=== PATIENT | female | born 1940 | race Caucasian/White ===

== ENCOUNTER 2017-09-18 15:17 | Emergency (ER) | payer MEDICARE ==
[~2017-09-18] VITALS: Ht 152.4 cm; Wt 87.5 kg
[~2017-09-18 15:17] MED LIST: AMLODIPINE BESYL5 MG PO; PRAVASTATIN SOD20 MG PO; PRILOSEC2.5 MG PO; VITAMIN C100 MG PO; VITAMIN D400 UNI2 PO
[2017-09-18] MEDS ORDERED: HYDROCODONE/APAP 5MG-325MG TAB PO ONE (15:45)
[2017-09-18] MEDS ORDERED: IBUPROFEN 600 MG TAB PO STA (15:59)
[2017-09-18 16:33] VITALS: BP 140/82
== END 2017-09-18 16:35 | disposition home or self-care (01) ==
LOC: FSED 15:17
DX: M25.531 Pain in right wrist (principal); G56.01 Carpal tunnel syndrome, right upper limb; S63.511A Sprain of carpal joint of right wrist, initial encounter; S63.521A Sprain of radiocarpal joint of right wrist, initial encounter
CPT/HCPCS: 99283

== ENCOUNTER 2018-02-24 21:03 | Emergency (ER) | payer MEDICARE ==
[~2018-02-24] VITALS: Ht 152.4 cm; Wt 90.7 kg
[2018-02-24] MEDS ORDERED: TETANUS/DIPHTHERIA TOX ADULT 0.5 ML SYR IM STA (21:52)
[2018-02-24] MEDS ORDERED: ACETAMINOPHEN 325 MG TAB PO ONE (22:00)
[2018-02-24] MEDS ORDERED: MUPIROCIN 2% OINT 22 GM TUBE TOP ONE (22:00)
--- NOTE | 2018-02-24 22:05 | Diagnostic Imaging Report ---
EXAMINATION: Head CT without contrast. HISTORY:Status post fall. COMPARISON:CT brain from 01/25/2015. TECHNIQUE: Multidetector axial images were obtained from the foramen magnum to the vertex without contrast. The images were reconstructed using brain and bone algorithms. Thin section brain images were reformatted into coronal and sagittal planes. Dose modulation, iterative reconstruction, and/or weight based adjustment of the mA/kV was utilized to reduce the radiation dose to as low as reasonably achievable. Intravenous contrast: None IMAGE QUALITY: Acceptable. FINDINGS: Skull/scalp: Mild right parietal scalp soft tissue edema/hematoma. No acute depressed or displaced calvarial fracture. Parenchyma: Nonspecific bilateral frontoparietal patchy white matter hypodensity are likely related to small vessel ischemic changes. No acute hemorrhage, mass or acute major vascular territorial infarct. Arteries: No density suggestive of thrombosis. Dural sinuses: No abnormal density suggestive of thrombosis. Ventricles: No hydrocephalus or displacement. Extra-axial spaces: No abnormal density. Brain volume: Mild generalized cerebral volume loss. Craniocervical junction: No mass, Chiari malformation, or basilar invagination. Sella: Partial empty sella. Paranasal/mastoid sinuses: Mild mucosal thickening in right sphenoid sinus. IMPRESSION: 1. Mild right parietal scalp soft tissue edema/hematoma. No acute calvarial fracture. 2. No acute posttraumatic intracranial abnormality. Chronic findings: 1. Mild generalized cerebral volume loss. 2. Mild supratentorial white matter microvascular ischemic changes. Signed by: Dr. Linda Briceño M.D. on 02/24/2018 10:01 PM
[2018-02-24 22:27] VITALS: BP 149/67
== END 2018-02-24 22:41 | disposition home or self-care (01) ==
LOC: FSED 21:03
DX: S06.0X0A Concussion without loss of consciousness, initial encounter (principal); S00.03XA Contusion of scalp, initial encounter; S00.01XA Abrasion of scalp, initial encounter; W18.39XA Other fall on same level, initial encounter; Y92.511 Restaurant or cafe as the place of occurrence of the external cause
CPT/HCPCS: 70450; 90714; 99283

== ENCOUNTER 2019-03-06 19:42 | Observation (INO) | payer MEDICARE ==
[~2019-03-06] VITALS: Ht 152.4 cm; Wt 88.5 kg
[2019-03-06] VITALS: BP 130/61
[2019-03-06] MEDS ORDERED: ASPIRIN 81 MG CHEW TAB PO ONE ×2 (19:55→20:45)
[2019-03-06] MEDS ORDERED: NITROGLYCERIN 2% OINT 1 GM PKT TOP STA (20:05)
[2019-03-06] MEDS ORDERED: ASPIRIN 325 MG TAB ONE (20:10)
[2019-03-06] MEDS ORDERED: NITROGLYCERIN 2% OINT 1 GM PKT ONE (20:10)
--- NOTE | 2019-03-06 20:41 | Diagnostic Imaging Report ---
EXAM: CXR 2 VIEW - HOPD DATE: 03/06/2019 12:00 AM INDICATION: Chest pain ^[id number] ^2021 COMPARISON: None FINDINGS: Lines and tubes: None Cardiac silhouette is at upper normal size. No focal pulmonary opacity, pleural effusion or pneumothorax. Upper abdomen unremarkable. No acute bony abnormality. IMPRESSION: Borderline heart size. No evidence for acute disease. Signed by: Dr. Alex Huggins M.D. on 03/06/2019 8:38 PM
[2019-03-06] MEDS: FAMOTIDINE 20 MG TAB PO SCH (20:43)
[2019-03-06] MEDS ORDERED: PROMETHAZINE 12.5MG/ NACL 0.9% 50 ML IV PRN (20:45)
[2019-03-06] MEDS ORDERED: PROMETHAZINE HCL (IM) 25 MG/ML VIAL IV PRN (20:45)
[2019-03-06] MEDS ORDERED: MORPHINE SULFATE 2 MG/ML SYR 1ML IV PRN (20:45)
[2019-03-06] MEDS ORDERED: FAMOTIDINE 20 MG TAB ONE (20:46)
--- NOTE | 2019-03-06 21:30 | NUR ---
Patient was brought from freestanding Er in a stretcher with c/o chest pain.aaox4.ambulates with cane.no resp.distress.iv to left ac #20 g patent.tele #4 is placed.sr.oriented to the unit.bed locked and in lowest position.phone and call light within reach.instructed to call for assistance as needed.chest pain voiced 03/28.keep monitor the pt.
[2019-03-06 22:00] VITALS: BP 146/65
[2019-03-07] MEDS ORDERED: ARICEPT5 MG PO (01:16)
[2019-03-07] MEDS ORDERED: GABAPENTIN100 MG PO (01:16)
[2019-03-07] MEDS ORDERED: CHLORTHALIDONE25 MG PO (01:16)
[2019-03-07] MEDS ORDERED: ASPIRIN81 MG PO (01:16)
[2019-03-07] MEDS ORDERED: LEVOTHYROXINE50 MCG PO (01:16)
[2019-03-07] MEDS ORDERED: LISINOPRIL10 MG PO (01:16)
[2019-03-07] MEDS ORDERED: MELOXICAM7.5 MG PO (01:16)
[2019-03-07] MEDS: NITROGLYCERIN 2% OINT 1 GM PKT TOP SCH ×3 (01:20→12:00)
[2019-03-07 04:00] VITALS: BP 108/56
--- NOTE | 2019-03-07 05:00 | NUR ---
NO CHEST PAIN VOICED.RESTING WELL .
[2019-03-07 06:52] LABS: CREATINE KINASE MB 0.8 ng/mL (0-5.0)
--- NOTE | 2019-03-07 07:00 | NUR ---
Bed side shift report given to the oncoming Rn.stable condition.
[2019-03-07 07:10] LABS: CHOL/HDL RATIO 3.5 (3.0-3.6)
--- NOTE | 2019-03-07 07:11 | NUR ---
walking rounds completed and shift change report received from cnc machinist 2nd shift RN. pt resting, in stable condition.
[2019-03-07 07:34] VITALS: BP 121/57
[2019-03-07 08:08] VITALS: BP 121/57
[2019-03-07] MEDS ORDERED: ASPIRIN 81 MG ENTERIC COATED PO SCH (09:00)
[2019-03-07] MEDS: FAMOTIDINE 20 MG TAB PO SCH (10:02)
[2019-03-07 12:11] VITALS: BP 146/65
--- OUTSIDE RECORDS SUMMARY | 2019-03-07 14:08 | XMS REPORT ---
Author Author [facility] Address Unknown Phone Unavailable Care Team Providers Care Admissions Rn Name Role Phone Nacho FIERRO Unavailable Unavailable Bob PERALES Unavailable Unavailable Problems This patient has no known problems. Allergies, Adverse Reactions, Alerts This patient has no known allergies or adverse reactions. Medications This patient has no known medications. Results Test Description Test Time Test Comments Text Results Atomic Results Result Comments CXR 2 VIEW - HOPD 2019-03-06 20:37:00 [place] [address] Patient Name: BENNY GALICIA MR #: [id number] : 1940 Age/Sex: 78/F Req #: [id number] Adm Physician: Ordered by: JOSY LOFTON MD Report #: [id number] Location: [facility] Room/Bed: Procedure: [id number] HOPD/CXR 2 VIEW - HOPD Exam Date: 03/06/19 Exam Time: 2021 REPORT STATUS: Signed EXAM: CXR 2 VIEW - HOPD DATE: 03/06/2019 12:00 AM INDICATION: Chest pain [id number] COMPARISON: None FINDINGS: Lines and tubes: None Cardiac silhouette is at upper normal size. No focal pulmonary opacity, pleural effusion or pneumothorax. Upper abdomen unremarkable. No acute bony abnormality. IMPRESSION: Borderline heart size. No evidence for acute disease. Signed by: Dr. Josy Regan M.D. on 03/06/2019 8:38 PM Dictated By: JOSY REGAN MD 37 Transcribed By: HEATHER on 03/06/192037 COPY TO: JOSY LOFTON MD CT BRAIN [facility] 2018-02-24 21:57:00 [place] [address] Patient Name: BENNY GALICIA MR #: [id number] : 1940 Age/Sex: 77/F Req #: [id number] Adm Physician: Ordered by: SERAFIN PERALES MD Report #: [id number] Location: [facility] Room/Bed: Procedure: [id number] HOPD/CT BRAIN [facility] Exam Date: 02/24/18 Exam Time: 2144 REPORT STATUS: Signed EXAMINATION: Head CT without contrast. HISTORY:St atus post fall. COMPARISON:CT brain from 01/25/2015. TECHNIQUE: Multidetector axial images were obtained from the foramen magnum to the vertex without contrast. The images were reconstructed using brain and bone algorithms. Thin section brain images were reformatted into coronal and sagittal planes. Dose modulation, iterative reconstruction, and/or weight based adjustment of the mA/kV was utilized to reduce the radiation dose to as low as reasonably achievable. Intravenous contrast: None IMAGE QUALITY: Acceptable. FINDINGS: Skull/scalp: Mild right parietal scalp soft tissue edema/hematoma. No acute depressed or displaced calvarial fracture. Parenchyma: Nonspecific bilateral frontoparietal patchy white matter hypodensity are likely related to small vessel ischemic changes. No acute hemorrhage, mass or acute major vascular territorial infarct. Arteries: No density suggestive of thrombosis. Dural sinuses: No abnormal density suggestive of thrombosis. Ventricles: No hydrocephalus or displacement. Extra-axial spaces: No abnormal density. Brain volume: Mild generalized cerebral volume loss. Craniocervical junction: No mass, Chiari malformation, or basilar invagination. Sella: Partial empty sella. Paranasal/mastoid sinuses: Mild mucosal thickening in right sphenoid sinus. IMPRESSION: 1. Mild right parietal scalp soft tissue edema/hematoma. No acute calvarial fracture. 2. No acute posttraumatic intracranial abnormality. Chronic findings: 1. Mild generalized cerebral volume loss. 2. Mild supratentorial white matter microvascular ischemic changes. Signed by: Dr. Linda Briceño M.D. on 02/24/2018 10:01 PM Dictated By: LINDA BRICEÑO MD 00 Transcribed By: HEATHER on 02/24/182200 COPY TO: SERAFIN PERALES MD
[2019-03-07 14:43] LABS: ANION GAP 15.6 mmol/L (8-16); CALCIUM 9.3 mg/dL (8.4-10.2); CREATININE, SERUM 1.34 mg/dL (0.57-1.11); POTASSIUM 3.6 mmol/L (3.5-5.1)
[2019-03-07] MEDS ORDERED: MELOXICAM 7.5 MG TAB PO SCH (15:00)
--- NOTE | 2019-03-07 15:30 | NUR ---
REEMA explained to patient, patient signed, copy to pt , copy to chart
[2019-03-07 15:31] VITALS: BP 145/71
[2019-03-07 15:37] LABS: CREATINE KINASE MB 0.9 ng/mL (0-5.0)
--- NOTE | 2019-03-07 20:51 | History and Physical ---
PCP: Dr. Mitchell at [facility]. CHIEF COMPLAINT: Chest pain. HISTORY OF PRESENT ILLNESS: This is a 78-year-old female with past medical history of hypertension, high cholesterol, GERD, hypothyroidism, and pancreatic cancer, who presented to the Urgent Care with complaints of chest pain and epigastric pain. She was recently started on gabapentin. She reports having nausea, vomiting, and progressive epigastric pain and chest pain associated with nausea and vomiting. She reports starting medication on Sunday and has been vomiting ever since. She denies any shortness of breath, radiation of pain to the left arm or jaw area. No dizziness or passing out. She denies any hematemesis, dysuria, diarrhea, melena. Yesterday, she reports the pain was progressively getting worse, so presented to the freestanding ER for further evaluation. PAST MEDICAL HISTORY: 1. Hypertension. 2. High cholesterol. 3. Rheumatoid arthritis. 4. Gastroesophageal reflux disease. 5. Hypothyroidism. 6. Pancreatic cancer. PAST SURGICAL HISTORY: She had appendectomy, stem cell, carpal tunnel on right wrist. FAMILY MEDICAL HISTORY: Father had heart disease. Also brothers with heart disease and brother had a colon cancer. SOCIAL HISTORY: She denies any tobacco, alcohol, or drug use. ALLERGIES: SHE IS ALLERGIC TO IODINE AND ZOFRAN. REVIEW OF SYSTEMS: GENERAL: Fatigue. HEENT: No head trauma. LUNGS: No shortness of breath or cough. CARDIOVASCULAR: Reports chest pain, no palpitation or passing out. GI: Nausea, vomiting, and epigastric pain. NEUROLOGIC: Alert and oriented. MUSCULOSKELETAL: Moves all extremities. No edema. SKIN: Dry. PHYSICAL EXAMINATION: VITAL SIGNS: Temperature 96.2, pulse 84, respirations 18, blood pressure 146/65, pulse ox 96%. GENERAL: No acute distress. HEENT: Normocephalic, atraumatic. NECK: Supple. LUNGS: Clear to auscultation. CARDIOVASCULAR: Regular rate and rhythm. GI: Mild tenderness in the epigastric area. Obese and soft. NEUROLOGIC: Alert, awake, and oriented x3. MUSCULOSKELETAL: Moves all extremities. No edema. SKIN: Dry and intact. PSYCHIATRY: Calm. LABORATORY DATA: Cardiac enzymes negative. WBCs 7.2, hemoglobin 11.1, hematocrit 34.6, platelets 227. Sodium 138, potassium 3.5, creatinine 1.5, ALT 25, AST 23, troponin less than 0.05. CKD 1.1. Chest x-ray unremarkable. Borderline heart size. IMPRESSION: 1. Chest pain. Acute coronary syndrome ruled out. Chest pain likely due to nausea and vomiting, GI origin. She was given Pepcid, aspirin and nitroglycerin at the ER. She reports the pain is much improved now. Advised to stop taking gabapentin. 2. Hypertension. Resume home medication. 3. Acute kidney injury, creatinine 1.5, likely due to nausea, vomiting, and now on baseline. We will repeat BMP. 4. Hyperlipidemia. Continue statin. 5. Gastroesophageal reflux disease. Continue Pepcid. 6. Hypothyroidism. Continue levothyroxine 50 mcg. 7. Rheumatoid arthritis. Resume Mobic. 8. Pancreatic cancer history, now on remission. 9. Deep vein thrombosis prophylaxis. SCDs. PLAN: The patient is with negative troponins, chest pain is improved. No EKG changes, the patient is advised to stop taking gabapentin and follow up with her PCP. Likely, the chest pain is due to epigastric pain radiating to the chest. We will avoid irritant and encourage to use Pepcid for acid reflux. Same-day discharge. Dictated by CHAITANYA Oquendo Blake Shoemaker MD MY/MODL /[id number] Seen and examined on 03/07/19. Agree with the findings and plan as documented by CHAITANYA Child. MTDD
[2019-03-07] MEDS ORDERED: PRAVASTATIN 20 MG TAB PO SCH (21:00)
[2019-03-07] MEDS ORDERED: DONEPEZIL HCL 5 MG TAB PO SCH (21:00)
[2019-03-08] MEDS ORDERED: LEVOTHYROXINE SODIUM 50 MCG TAB PO SCH (06:00)
[2019-03-08] MEDS ORDERED: CHLORTHALIDONE 25 MG TAB PO SCH (09:00)
[2019-03-08] MEDS ORDERED: LISINOPRIL 10 MG TAB PO SCH (09:00)
== END 2019-03-07 15:57 | disposition home or self-care (01) ==
LOC: FSED 19:42 → ERHOLD 20:41 → MED/SURG 21:53
PROVIDERS: ADMIT Internal Medicine; ATTEND Internal Medicine
DX: R07.9 Chest pain, unspecified (principal); I10 Essential (primary) hypertension; N17.9 Acute kidney failure, unspecified; K21.9 Gastro-esophageal reflux disease without esophagitis; M06.9 Rheumatoid arthritis, unspecified; Z85.07 Personal history of malignant neoplasm of pancreas; E78.5 Hyperlipidemia, unspecified
CPT/HCPCS: 36415; 71046; 80048; 80053; 80061; 82550; 82553 ×2; 84484 ×2; 85025; 93005; 99284; G0378 ×2

== ENCOUNTER 2020-03-26 14:48 | Observation (INO) | payer MEDICARE ==
[~2020-03-26] VITALS: Ht 152.4 cm; Wt 88.5 kg
[~2020-03-26 14:48] MED LIST changes: +ARICEPT5 MG PO; +ASPIRIN81 MG PO; +CHLORTHALIDONE25 MG PO; +GABAPENTIN100 MG PO; +LEVOTHYROXINE50 MCG PO; +LISINOPRIL10 MG PO; +MELOXICAM7.5 MG PO
[2020-03-26] MEDS ORDERED: ATORVASTATIN CA40 MG PO (16:03)
[2020-03-26] MEDS ORDERED: FUROSEMIDE40 MG PO (16:03)
[2020-03-26] MEDS ORDERED: PROVENTIL HFA6.7 GM INH (16:03)
[2020-03-26] MEDS ORDERED: CARVEDILOL6.25 MG (16:03)
[2020-03-26] MEDS ORDERED: BENZONATATE100 MG PO (16:03)
[2020-03-26] MEDS ORDERED: MECLIZINE HCL12.5 MG PO (16:03)
[2020-03-26] MEDS ORDERED: DIAZEPAM INJ 5 MG/ML 2 ML IV ONE (17:30)
[2020-03-26] MEDS ORDERED: SODIUM CHLORIDE FLUSH 10 ML SYR INJ PRN (19:15)
[2020-03-26] MEDS ORDERED: ONDANSETRON HCL INJ 2MG/ML 2ML 2 MG/ML VIAL IV PRN (19:15)
[2020-03-26 20:40] VITALS: BP 153/69
[2020-03-26] MEDS ORDERED: HYDRALAZINE HCL 20 MG/ML VIAL IV PRN (20:45)
[2020-03-27] VITALS (8 sets, daily range): BP systolic 115–155; BP diastolic 53–78
[2020-03-27] MEDS ORDERED: ACETAMINOPHEN 325 MG TAB PO PRN (09:45)
[2020-03-27] MEDS ORDERED: ONDANSETRON HCL INJ 2MG/ML 2ML 2 MG/ML VIAL IV PRN (09:45)
[2020-03-27] MEDS ORDERED: ALBUTEROL SULFATE HFA 8GM INHALATION AEROSOL INH PRN (09:45)
[2020-03-27 11:37] LABS: BASOPHILS % 0.9 % (0.0-1.0); EOSINOPHILS # (AUTO) 0.1 (0.0-0.4); EOSINOPHILS % 2.8 % (0.0-6.0); HEMATOCRIT 29.1 % (34.2-44.1); HEMOGLOBIN 9.2 g/dL (12.0-16.0); LYMPHOCYTES # (AUTO) 1.9 (1.0-3.2); LYMPHOCYTES % 45.1 % (18.0-39.1); MEAN CORPUSCULAR HEMOGLOBIN 32.7 pg (28-32); MEAN CORPUSCULAR HGB CONC 31.6 g/dL (31-35); MEAN CORPUSCULAR VOLUME 103.6 fL (81-99); MONOCYTES # (AUTO) 0.3 (0.2-0.8); NEUTROPHILS # (AUTO) 1.9 (2.1-6.9); PLATELET COUNT 170 x10e3/uL (140-360); RED BLOOD COUNT 2.81 x10e6/uL (3.6-5.1); RED CELL DISTRIBUTION WIDTH 14.4 % (11.7-14.4)
[2020-03-27 11:58] LABS: ANION GAP 10.8 mmol/L (8-16); CALCIUM 8.3 mg/dL (8.4-10.2); CREATININE, SERUM 1.09 mg/dL (0.57-1.11); POTASSIUM 3.8 mmol/L (3.5-5.1)
[2020-03-27] MEDS: MECLIZINE HCL 12.5 MG TAB PO SCH ×2 (14:13→22:28)
[2020-03-27] MEDS ORDERED: SODIUM CHLORIDE 0.9% 250ML 250 ML IV NR (16:00)
[2020-03-27] MEDS ORDERED: CARVEDILOL 12.5 MG TAB PO SCH (17:00)
[2020-03-27] MEDS: CARVEDILOL 12.5 MG TAB PO SCH (17:31)
[2020-03-27] MEDS: DONEPEZIL HCL 5 MG TAB PO SCH (20:39)
[2020-03-28] VITALS (7 sets, daily range): BP systolic 112–143; BP diastolic 50–64
[2020-03-28] MEDS: LEVOTHYROXINE SODIUM 50 MCG TAB PO SCH (05:18)
[2020-03-28] MEDS: MECLIZINE HCL 12.5 MG TAB PO SCH ×3 (05:59→22:09)
[2020-03-28] MEDS: ASPIRIN 81 MG CHEW TAB PO SCH (09:10)
[2020-03-28] MEDS: CARVEDILOL 12.5 MG TAB PO SCH ×2 (09:11→17:03)
[2020-03-28] MEDS: DONEPEZIL HCL 5 MG TAB PO SCH (21:25)
[2020-03-29] VITALS: BP 126/56
[2020-03-29 04:00] VITALS: BP 147/63
[2020-03-29] MEDS: LEVOTHYROXINE SODIUM 50 MCG TAB PO SCH (05:30)
[2020-03-29 05:39] LABS: BASOPHILS % 0.9 % (0.0-1.0); EOSINOPHILS # (AUTO) 0.1 (0.0-0.4); HEMATOCRIT 28.2 % (34.2-44.1); HEMOGLOBIN 9.2 g/dL (12.0-16.0); LYMPHOCYTES # (AUTO) 2.4 (1.0-3.2); LYMPHOCYTES % 51.3 % (18.0-39.1); MEAN CORPUSCULAR HEMOGLOBIN 33.1 pg (28-32); MEAN CORPUSCULAR HGB CONC 32.6 g/dL (31-35); MEAN CORPUSCULAR VOLUME 101.4 fL (81-99); MONOCYTES # (AUTO) 0.3 (0.2-0.8); MONOCYTES % 6.6 % (4.4-11.3); NEUTROPHILS # (AUTO) 1.8 (2.1-6.9); PLATELET COUNT 165 x10e3/uL (140-360); RED BLOOD COUNT 2.78 x10e6/uL (3.6-5.1); RED CELL DISTRIBUTION WIDTH 14.4 % (11.7-14.4)
[2020-03-29] MEDS: MECLIZINE HCL 12.5 MG TAB PO SCH ×2 (06:00→14:00)
[2020-03-29 06:07] LABS: ALBUMIN 2.9 g/dL (3.5-5.0); ANION GAP 12.8 mmol/L (8-16); CALCIUM 8.2 mg/dL (8.4-10.2); CHOL/HDL RATIO 4.5 (3.0-3.6); CREATININE, SERUM 1.09 mg/dL (0.57-1.11); POTASSIUM 3.8 mmol/L (3.5-5.1)
[2020-03-29 07:53] VITALS: BP 144/63
[2020-03-29 08:15] VITALS: BP 144/63
[2020-03-29] MEDS: ASPIRIN 81 MG CHEW TAB PO SCH (10:28)
[2020-03-29] MEDS: CARVEDILOL 12.5 MG TAB PO SCH (10:29)
[2020-03-29 12:00] VITALS: BP 145/62
[2020-03-29] MEDS ORDERED: COREG12.5 MG PO (14:21)
[2020-03-29 15:50] VITALS: BP 153/79
== END 2020-03-29 16:11 | disposition home health service (06) ==
LOC: FSED 14:52 → ERHOLD 19:20 → MED/SURG 20:37
PROVIDERS: ADMIT Internal Medicine; ATTEND Internal Medicine
DX: R42 Dizziness and giddiness (principal); I50.9 Heart failure, unspecified; E03.9 Hypothyroidism, unspecified; J44.9 Chronic obstructive pulmonary disease, unspecified; F03.90 Unspecified dementia, unspecified severity, without behavioral disturbance, psychotic disturbance, mood disturbance, and anxiety; Z85.72 Personal history of non-Hodgkin lymphomas; R27.0 Ataxia, unspecified; E78.5 Hyperlipidemia, unspecified; Z88.8 Allergy status to other drugs, medicaments and biological substances; Z91.041 Radiographic dye allergy status; I11.0 Hypertensive heart disease with heart failure; D64.9 Anemia, unspecified
CPT/HCPCS: 36415 ×2; 70450; 70551; 80048; 80053 ×2; 80061; 81003; 84443; 85025 ×3; 93005; 93880; 96374; 97116 ×2; 97162; 97530 ×2; 99284; G0378 ×4; J3360; J8597 ×3; U0002

== ENCOUNTER 2020-10-23 09:15 | Emergency (ER) | payer MEDICARE ==
[~2020-10-23] VITALS: Ht 152.4 cm; Wt 87.1 kg
[~2020-10-23 09:15] MED LIST changes: +ATORVASTATIN CA40 MG PO; +BENZONATATE100 MG PO; +CARVEDILOL6.25 MG; +COREG12.5 MG PO; +FUROSEMIDE40 MG PO; +MECLIZINE HCL12.5 MG PO; +PROVENTIL HFA6.7 GM INH
[2020-10-23] MEDS ORDERED: ACETAMINOPHEN500 MG PO (09:51)
[2020-10-23] MEDS ORDERED: CLEOCIN HCL300 MG PO (09:51)
== END 2020-10-23 10:15 | disposition home or self-care (01) ==
LOC: FSED 09:19
DX: L03.113 Cellulitis of right upper limb (principal); S61.441A Puncture wound with foreign body of right hand, initial encounter; Z94.84 Stem cells transplant status; I10 Essential (primary) hypertension; G30.9 Alzheimer's disease, unspecified; F02.80 Dementia in other diseases classified elsewhere, unspecified severity, without behavioral disturbance, psychotic disturbance, mood disturbance, and anxiety; I50.9 Heart failure, unspecified; E78.5 Hyperlipidemia, unspecified; J44.9 Chronic obstructive pulmonary disease, unspecified; E03.9 Hypothyroidism, unspecified
CPT/HCPCS: 99283

== ENCOUNTER 2021-04-11 15:52 | Emergency (ER) | payer MEDICARE ==
[~2021-04-11] VITALS: Ht 152.4 cm; Wt 87.1 kg
[~2021-04-11 15:52] MED LIST changes: +ACETAMINOPHEN500 MG PO; +CLEOCIN HCL300 MG PO
[2021-04-11 17:11] LABS: BASOPHILS # (AUTO) 0.1 (0.0-0.1); BASOPHILS % 0.9 % (0.0-1.0); EOSINOPHILS % 0.6 % (0.0-6.0); HEMATOCRIT 35.6 % (34.2-44.1); LYMPHOCYTES % 30.3 % (18.0-39.1); MEAN CORPUSCULAR HEMOGLOBIN 35.3 pg (28-32); MEAN CORPUSCULAR HGB CONC 33.7 g/dL (31-35); MEAN CORPUSCULAR VOLUME 104.7 fL (81-99); MONOCYTES # (AUTO) 0.2 (0.2-0.8); NEUTROPHILS # (AUTO) 4.3 (2.1-6.9); NEUTROPHILS % 64.6 % (38.7-80.0); PLATELET COUNT 220 x10e3/uL (140-360); RED CELL DISTRIBUTION WIDTH 13.2 % (11.7-14.4)
[2021-04-11] MEDS ORDERED: SODIUM CHLORIDE 0.9% 1000ML 1,000 ML IV STA (17:28)
[2021-04-11 17:30] LABS: ALBUMIN 3.7 g/dL (3.5-5.0); ANION GAP 16.2 mmol/L (8-16); CALCIUM 9.3 mg/dL (8.4-10.2); CREATININE, SERUM 1.29 mg/dL (0.57-1.11); POTASSIUM 3.2 mmol/L (3.5-5.1)
[2021-04-11 17:39] LABS: CREATINE KINASE MB 1.8 ng/mL (0-5.0)
[2021-04-11] MEDS ORDERED: GABAPENTIN300 MG PO (18:36)
[2021-04-11] MEDS ORDERED: ONDANSETRON ODT4 MG PO (18:36)
== END 2021-04-11 20:34 | disposition home or self-care (01) ==
LOC: ER 17:37
DX: R53.1 Weakness (principal); G58.8 Other specified mononeuropathies; R11.2 Nausea with vomiting, unspecified; I10 Essential (primary) hypertension; G30.9 Alzheimer's disease, unspecified; F02.80 Dementia in other diseases classified elsewhere, unspecified severity, without behavioral disturbance, psychotic disturbance, mood disturbance, and anxiety; J45.909 Unspecified asthma, uncomplicated; Z85.72 Personal history of non-Hodgkin lymphomas; Z20.822 Contact with and (suspected) exposure to COVID-19
CPT/HCPCS: 36415; 70450; 71045; 80053; 82550; 82553; 84484; 85025; 93005; 99284; U0002

== ENCOUNTER 2021-05-19 09:56 | Emergency (ER) | payer MEDICARE, OTHER ==
[~2021-05-19] VITALS: Ht 152.4 cm; Wt 85.7 kg
[~2021-05-19 09:56] MED LIST changes: +GABAPENTIN300 MG PO; +ONDANSETRON ODT4 MG PO
[2021-05-19] MEDS ORDERED: ACETAMINOPHEN 325 MG TAB ONE (10:44)
[2021-05-19] MEDS ORDERED: ACETAMINOPHEN 325 MG TAB PO ONE (11:00)
== END 2021-05-19 12:29 | disposition home or self-care (01) ==
LOC: FSED 10:22
DX: S80.01XA Contusion of right knee, initial encounter (principal); S61.512A Laceration without foreign body of left wrist, initial encounter; W01.0XXA Fall on same level from slipping, tripping and stumbling without subsequent striking against object, initial encounter; Y93.01 Activity, walking, marching and hiking; Y92.008 Other place in unspecified non-institutional (private) residence as the place of occurrence of the external cause; I10 Essential (primary) hypertension; J45.909 Unspecified asthma, uncomplicated; Z85.72 Personal history of non-Hodgkin lymphomas
CPT/HCPCS: 99283

== ENCOUNTER 2022-04-14 16:57 | Observation (INO) | payer MEDICARE ==
[~2022-04-14] VITALS: Ht 152.4 cm; Wt 78.9 kg
[2022-04-14] MEDS ORDERED: DIPHENHYDRAMINE HCL INJ 50 MG/ML VIAL IV PRN (17:45)
[2022-04-14] MEDS ORDERED: LEVOFLOXACIN 500MG/D5W 100ML 100 ML IV SCH (18:15)
[2022-04-14] MEDS ORDERED: ALBUTEROL SULFATE HFA 8GM INHALATION AEROSOL INH PRN (19:00)
[2022-04-14] MEDS ORDERED: CLONIDINE HCL 0.1 MG TAB PO PRN (19:00)
[2022-04-14] MEDS ORDERED: ONDANSETRON HCL INJ 2MG/ML 2ML 2 MG/ML VIAL IV PRN (19:00)
[2022-04-14] MEDS ORDERED: NON-FORMULARY MEDICATION (Atorvastatin Calcium 40 MG) PO SCH (21:00)
[2022-04-14] MEDS ORDERED: SODIUM CHLORIDE 0.9% 250ML 250 ML ONE (21:28)
[2022-04-14] MEDS: ATORVASTATIN 40 MG TAB PO SCH (21:35)
[2022-04-14] MEDS: DONEPEZIL HCL 5 MG TAB PO SCH (21:36)
[2022-04-14 21:39] VITALS: BP 161/65
[2022-04-14] MEDS: MECLIZINE HCL 12.5 MG TAB PO SCH (22:00)
[2022-04-14] MEDS: METRONIDAZOLE 500MG/NS 100ML 100 ML IV SCH (22:25)
[2022-04-14] MEDS ORDERED: AMLODIPINE BESYL5 MG PO (23:31)
[2022-04-14] MEDS ORDERED: LOSARTAN POTASS25 MG PO (23:31)
[2022-04-14] MEDS ORDERED: LEVOTHYROXINE75 MCG PO (23:31)
[2022-04-15] VITALS (8 sets, daily range): BP systolic 105–138; BP diastolic 45–60
[2022-04-15] MEDS ORDERED: ACETAMINOPHEN 325 MG TAB PO PRN
[2022-04-15] MEDS: ACETAMINOPHEN 325 MG TAB PO PRN ×4 (00:08→21:00)
[2022-04-15 01:33] LABS: HEMATOCRIT 27.8 % (34.2-44.1); HEMOGLOBIN 8.6 g/dL (12.0-16.0)
[2022-04-15] MEDS: METRONIDAZOLE 500MG/NS 100ML 100 ML IV SCH ×2 (02:42→11:00)
[2022-04-15] MEDS: MECLIZINE HCL 12.5 MG TAB PO SCH ×3 (05:32→20:55)
[2022-04-15 06:42] LABS: BASOPHILS % 0.9 % (0.0-1.0); EOSINOPHILS # (AUTO) 0.1 (0.0-0.4); EOSINOPHILS % 1.6 % (0.0-6.0); HEMATOCRIT 28.2 % (34.2-44.1); HEMOGLOBIN 8.7 g/dL (12.0-16.0); LYMPHOCYTES # (AUTO) 1.8 (1.0-3.2); LYMPHOCYTES % 55.6 % (18.0-39.1); MEAN CORPUSCULAR HEMOGLOBIN 36.6 pg (28-32); MEAN CORPUSCULAR HGB CONC 30.9 g/dL (31-35); MEAN CORPUSCULAR VOLUME 118.5 fL (81-99); MONOCYTES # (AUTO) 0.2 (0.2-0.8); MONOCYTES % 5.3 % (4.4-11.3); NEUTROPHILS # (AUTO) 1.2 (2.1-6.9); NEUTROPHILS % 36.3 % (38.7-80.0); PLATELET COUNT 144 x10e3/uL (140-360); RED BLOOD COUNT 2.38 x10e6/uL (3.6-5.1); RED CELL DISTRIBUTION WIDTH 12.9 % (11.7-14.4)
[2022-04-15 07:03] LABS: ALBUMIN 2.8 g/dL (3.5-5.0); ALBUMIN/GLOBULIN RATIO 1.1 (0.8-2.0); ANION GAP 9.5 mmol/L (8-16); CALCIUM 8.3 mg/dL (8.4-10.2); CREATININE, SERUM 0.94 mg/dL (0.57-1.11); POTASSIUM 3.5 mmol/L (3.5-5.1)
[2022-04-15] MEDS: ASPIRIN 81 MG CHEW TAB PO SCH (09:39)
[2022-04-15] MEDS: BENZONATATE 100 MG CAP PO SCH ×2 (09:39→17:16)
[2022-04-15] MEDS: CARVEDILOL 12.5 MG TAB PO SCH ×2 (09:40→17:16)
[2022-04-15] MEDS: FUROSEMIDE 20 MG TAB PO SCH ×2 (09:40→17:16)
[2022-04-15 12:27] LABS: HEMATOCRIT 30.6 % (34.2-44.1); HEMOGLOBIN 9.4 g/dL (12.0-16.0)
[2022-04-15 12:38] LABS: EOSINOPHILS % (MANUAL) 1 % (0-7); LYMPHOCYTES % (MANUAL) 56 % (19-48); MONOCYTES % (MANUAL) 6 % (3.4-9.0); NEUTROPHILS % (MANUAL) 37 % (40-74)
[2022-04-15 12:39] LABS: PLATELET ESTIMATE SLIGHTLY DECREASED; PLATELET MORPHOLOGY COMMENT NORMAL; RBC MORPHOLOGY COMMENT NORMAL
[2022-04-15 12:44] LABS: % IRON SATURATION 38 % (15-50); IRON 72 ug/dL (50-170); TOTAL IRON BINDING CAPACITY 192 ug/dL (261-478); TRANSFERRIN 137 mg/dL (180-382)
[2022-04-15] MEDS ORDERED: LEVOFLOXACIN 500 MG TAB PO SCH (18:00)
[2022-04-15] MEDS: METRONIDAZOLE 500 MG TAB PO SCH (20:54)
[2022-04-15] MEDS: DONEPEZIL HCL 5 MG TAB PO SCH (20:55)
[2022-04-15] MEDS: ATORVASTATIN 40 MG TAB PO SCH (20:55)
[2022-04-16] VITALS: BP 132/62
[2022-04-16 04:00] VITALS: BP 133/54
[2022-04-16] MEDS: MECLIZINE HCL 12.5 MG TAB PO SCH ×2 (05:58→14:31)
[2022-04-16] MEDS: METRONIDAZOLE 500 MG TAB PO SCH ×2 (05:58→14:30)
[2022-04-16 06:40] LABS: BASOPHILS # (AUTO) 0.1 (0.0-0.1); BASOPHILS % 1.5 % (0.0-1.0); EOSINOPHILS # (AUTO) 0.1 (0.0-0.4); EOSINOPHILS % 1.5 % (0.0-6.0); HEMATOCRIT 29.9 % (34.2-44.1); HEMOGLOBIN 10.1 g/dL (12.0-16.0); LYMPHOCYTES % 59.1 % (18.0-39.1); MEAN CORPUSCULAR HEMOGLOBIN 37.1 pg (28-32); MEAN CORPUSCULAR HGB CONC 33.8 g/dL (31-35); MEAN CORPUSCULAR VOLUME 109.9 fL (81-99); MONOCYTES # (AUTO) 0.2 (0.2-0.8); MONOCYTES % 5.6 % (4.4-11.3); NEUTROPHILS # (AUTO) 1.1 (2.1-6.9); PLATELET COUNT 143 x10e3/uL (140-360); RED BLOOD COUNT 2.72 x10e6/uL (3.6-5.1); RED CELL DISTRIBUTION WIDTH 13.4 % (11.7-14.4)
[2022-04-16 06:57] LABS: ALBUMIN 3.1 g/dL (3.5-5.0); ALBUMIN/GLOBULIN RATIO 1.1 (0.8-2.0); ANION GAP 11.4 mmol/L (8-16); CALCIUM 8.8 mg/dL (8.4-10.2); CREATININE, SERUM 1.17 mg/dL (0.57-1.11); POTASSIUM 3.4 mmol/L (3.5-5.1)
[2022-04-16 07:55] VITALS: BP 137/53
[2022-04-16 08:45] VITALS: BP 137/53
[2022-04-16] MEDS: BENZONATATE 100 MG CAP PO SCH (09:53)
[2022-04-16] MEDS: FUROSEMIDE 20 MG TAB PO SCH (09:55)
[2022-04-16] MEDS: CARVEDILOL 12.5 MG TAB PO SCH (09:58)
[2022-04-16] MEDS: ASPIRIN 81 MG CHEW TAB PO SCH (09:59)
[2022-04-16 11:21] VITALS: BP 125/54
[2022-04-16] MEDS ORDERED: POTASSIUM BICARBONATE/CIT AC 20 MEQ TABLET.EFF PO ONE ×2 (13:00→15:00)
[2022-04-16] MEDS ORDERED: METRONIDAZOLE500 MG PO (13:01)
[2022-04-16] MEDS ORDERED: LEVOFLOXACIN250 MG PO (13:09)
== END 2022-04-16 14:50 | disposition home or self-care (01) ==
LOC: FSED 17:32 → ERHOLD 17:44 → MED/SURG3 20:31
PROVIDERS: ADMIT Internal Medicine; ATTEND Internal Medicine
DX: K57.32 Diverticulitis of large intestine without perforation or abscess without bleeding (principal); I11.0 Hypertensive heart disease with heart failure; I50.9 Heart failure, unspecified; Z20.822 Contact with and (suspected) exposure to COVID-19; J45.909 Unspecified asthma, uncomplicated
CPT/HCPCS: 36415 ×2; 74176; 80048; 80053 ×2; 80076; 81003; 82553; 83540; 84466; 84484; 85014; 85018; 85025 ×3; 93005; 94799 ×3; 99284; C9113 ×3; G0378 ×3; J1956; J7050; J8597 ×2; U0002

== ENCOUNTER 2022-04-17 12:56 | Emergency (ER) | payer MEDICARE ==
[~2022-04-17] VITALS: Ht 152.4 cm; Wt 78.9 kg
[~2022-04-17 12:56] MED LIST changes: +LEVOFLOXACIN250 MG PO; +LEVOTHYROXINE75 MCG PO; +LOSARTAN POTASS25 MG PO; +METRONIDAZOLE500 MG PO
== END 2022-04-17 14:53 | disposition home or self-care (01) ==
LOC: ER 14:03
DX: I95.89 Other hypotension (principal); K57.92 Diverticulitis of intestine, part unspecified, without perforation or abscess without bleeding; I11.0 Hypertensive heart disease with heart failure; I50.9 Heart failure, unspecified; J45.909 Unspecified asthma, uncomplicated; Z88.8 Allergy status to other drugs, medicaments and biological substances; Z91.041 Radiographic dye allergy status; Z79.82 Long term (current) use of aspirin; Z79.899 Other long term (current) drug therapy; Z85.72 Personal history of non-Hodgkin lymphomas
CPT/HCPCS: 99282

== ENCOUNTER 2022-07-31 14:46 | Emergency (ER) | payer MEDICARE ==
[~2022-07-31] VITALS: Ht 149.9 cm; Wt 78.5 kg
[2022-07-31] MEDS ORDERED: NEXIUM20 MG PO (16:43)
[2022-07-31] MEDS ORDERED: MELOXICAM7.5 MG PO (16:43)
[2022-07-31] MEDS ORDERED: LOSARTAN POTASS25 MG PO (16:43)
[2022-07-31] MEDS ORDERED: KETOROLAC TROMETHAMINE 30 MG/ML VIAL IV STA (16:57)
[2022-07-31] MEDS ORDERED: FAMOTIDINE 20 MG/2 ML VIAL IV STA (16:57)
[2022-07-31] MEDS ORDERED: SODIUM CHLORIDE 0.9% 1000ML 1,000 ML IV ONE (17:15)
[2022-07-31] MEDS ORDERED: SODIUM CHLORIDE 0.9% 1000ML 1,000 ML ONE (17:18)
[2022-07-31] MEDS ORDERED: FAMOTIDINE 20 MG/2 ML VIAL IV ONE (17:18)
[2022-07-31] MEDS ORDERED: KETOROLAC TROMETHAMINE 30 MG/ML VIAL ONE (17:18)
[2022-07-31 18:15] VITALS: O2SAT 99
[2022-07-31] MEDS ORDERED: PIPERACILLIN/TAZOBACTAM 3.375 GM VIAL ONE (19:42)
[2022-07-31] MEDS ORDERED: AMOX TR-K CLV1 EAC2 PO (20:46)
[2022-07-31] MEDS ORDERED: ONDANSETRON ODT4 MG PO (20:46)
[2022-07-31] MEDS ORDERED: DICYCLOMINE HCL20 MG PO (20:47)
== END 2022-07-31 21:12 | disposition home or self-care (01) ==
LOC: FSED 15:53
DX: R50.9 Fever, unspecified (principal); R10.32 Left lower quadrant pain; K57.32 Diverticulitis of large intestine without perforation or abscess without bleeding; K80.20 Calculus of gallbladder without cholecystitis without obstruction; J90 Pleural effusion, not elsewhere classified; I51.7 Cardiomegaly; D64.9 Anemia, unspecified; I10 Essential (primary) hypertension; E78.5 Hyperlipidemia, unspecified; F03.90 Unspecified dementia, unspecified severity, without behavioral disturbance, psychotic disturbance, mood disturbance, and anxiety
CPT/HCPCS: 74176; 80048; 80076; 81003; 85025; 99284; J1885; J2543; J7030

== ENCOUNTER 2024-03-17 07:33 | Emergency (ER) | payer MEDICARE ==
[~2024-03-17] VITALS: Ht 152.4 cm; Wt 79.4 kg
[~2024-03-17 07:33] MED LIST changes: +AMOX TR-K CLV1 EAC2 PO; +COREG3.125 MG PO; +DICYCLOMINE HCL20 MG PO; +DOXYCYCLINE HY100 MG PO; +ENTRESTO 24 MG1 EACH PO; +NEXIUM20 MG PO; +PREDNISONE10 MG PO; +QUETIAPINE FUMA25 MG PO; +VALTREX500 MG PO
[2024-03-17] MEDS ORDERED: ZOLOFT50 MG (07:55)
[2024-03-17] MEDS ORDERED: ALDACTONE25 MG PO (07:55)
[2024-03-17] MEDS ORDERED: HYDROMORPHO (07:55)
[2024-03-17 09:10] VITALS: PULSE 64; RESP 16; TEMP 97.5
[2024-03-17 10:26] VITALS: BP 166/77; PULSE 57; RESP 16; TEMP 97.3; O2SAT 97
== END 2024-03-17 10:25 | disposition home or self-care (01) ==
LOC: FSED 07:37
DX: S00.11XA Contusion of right eyelid and periocular area, initial encounter (principal); M25.561 Pain in right knee; W01.198A Fall on same level from slipping, tripping and stumbling with subsequent striking against other object, initial encounter; Y92.89 Other specified places as the place of occurrence of the external cause; I12.9 Hypertensive chronic kidney disease with stage 1 through stage 4 chronic kidney disease, or unspecified chronic kidney disease; N18.30 Chronic kidney disease, stage 3 unspecified; I50.9 Heart failure, unspecified; E78.5 Hyperlipidemia, unspecified; G30.9 Alzheimer's disease, unspecified; F02.80 Dementia in other diseases classified elsewhere, unspecified severity, without behavioral disturbance, psychotic disturbance, mood disturbance, and anxiety; E03.9 Hypothyroidism, unspecified; K21.9 Gastro-esophageal reflux disease without esophagitis; Z85.72 Personal history of non-Hodgkin lymphomas
CPT/HCPCS: 70450; 70486; 72125; 99284

== ENCOUNTER 2024-05-12 12:17 | Emergency (ER) | payer MEDICARE ==
[~2024-05-12] VITALS: Ht 149.9 cm; Wt 79.4 kg
[~2024-05-12 12:17] MED LIST changes: +ALDACTONE25 MG PO; +HYDROMORPHO; +ZOLOFT50 MG
[2024-05-12 14:38] VITALS: PULSE 65; RESP 16; TEMP 97.8
[2024-05-12 14:39] VITALS: BP 154/71; PULSE 65; RESP 16; TEMP 97.8; O2SAT 98
== END 2024-05-12 14:42 | disposition home or self-care (01) ==
LOC: FSED 12:22
DX: R07.9 Chest pain, unspecified (principal); I12.9 Hypertensive chronic kidney disease with stage 1 through stage 4 chronic kidney disease, or unspecified chronic kidney disease; N18.30 Chronic kidney disease, stage 3 unspecified; E78.5 Hyperlipidemia, unspecified; J44.9 Chronic obstructive pulmonary disease, unspecified; I50.9 Heart failure, unspecified; E03.9 Hypothyroidism, unspecified; G30.9 Alzheimer's disease, unspecified; F02.80 Dementia in other diseases classified elsewhere, unspecified severity, without behavioral disturbance, psychotic disturbance, mood disturbance, and anxiety; J45.909 Unspecified asthma, uncomplicated; K21.9 Gastro-esophageal reflux disease without esophagitis; Z85.72 Personal history of non-Hodgkin lymphomas
CPT/HCPCS: 71046; 80053; 84484; 85025; 93005; 99284

== ENCOUNTER 2024-05-27 08:10 | Emergency (ER) | payer MEDICARE ==
[2024-05-27] MEDS: HYDROCODONE/APAP 5MG-325MG TAB PO ONE (08:46)
[2024-05-27 10:45] VITALS: PULSE 59; RESP 20; TEMP 96.9; O2SAT 95
[2024-05-27] MEDS: PREDNISONE 20 MG TAB PO ONE (11:08)
[2024-05-27] MEDS: KETOROLAC TROMETHAMINE 30 MG/ML VIAL IM ONE (11:09)
== END 2024-05-27 11:14 | disposition home or self-care (01) ==
LOC: FSED 08:16
DX: M79.604 Pain in right leg (principal); I83.91 Asymptomatic varicose veins of right lower extremity; M77.51 Other enthesopathy of right foot and ankle; D64.9 Anemia, unspecified; I50.9 Heart failure, unspecified; G30.9 Alzheimer's disease, unspecified; F02.80 Dementia in other diseases classified elsewhere, unspecified severity, without behavioral disturbance, psychotic disturbance, mood disturbance, and anxiety; Z94.84 Stem cells transplant status; Z85.72 Personal history of non-Hodgkin lymphomas
CPT/HCPCS: 73590; 73610; 93971; 99284; J1885; J7512

== ENCOUNTER 2024-12-08 01:40 | Emergency (ER) | payer MEDICARE ==
[~2024-12-08] VITALS: Ht 149.9 cm; Wt 79.8 kg
[2024-12-08 02:12] VITALS: PULSE 63; RESP 18; TEMP 97.3
[2024-12-08] MEDS: ACETAMINOPHEN 325 MG TAB PO ONE (03:45)
[2024-12-08 03:47] VITALS: BP 183/86; PULSE 64; RESP 18; TEMP 97.3; O2SAT 98
== END 2024-12-08 03:47 | disposition home or self-care (01) ==
LOC: FSED 02:09
DX: M25.551 Pain in right hip (principal); S00.83XA Contusion of other part of head, initial encounter; W06.XXXA Fall from bed, initial encounter; Y92.89 Other specified places as the place of occurrence of the external cause; G30.9 Alzheimer's disease, unspecified; F02.80 Dementia in other diseases classified elsewhere, unspecified severity, without behavioral disturbance, psychotic disturbance, mood disturbance, and anxiety; I10 Essential (primary) hypertension; J44.9 Chronic obstructive pulmonary disease, unspecified; I50.9 Heart failure, unspecified; E78.5 Hyperlipidemia, unspecified; K21.9 Gastro-esophageal reflux disease without esophagitis; Z94.84 Stem cells transplant status; Z87.19 Personal history of other diseases of the digestive system
CPT/HCPCS: 70450; 71250; 72192; 99283